=== PATIENT | female | born 1940 | race Caucasian/White ===

== ENCOUNTER → 2019-11-01 | Day surgery (SDC) | payer OTHER ==
[~2019-11-01] MED LIST: ELIQUIS5 MG PO; FOLIC ACID PO; FORTAMET500 MG PO; GRALISE600 MG PO; LOPRE; NORVASC5 MG PO; RECTICARE30 GM TOP; ULTRAM50 MG PO
== END | disposition home or self-care (01) ==
LOC: ADM 10-01 10:00 → CIR.AMB 10-06 10:00 → EDBD 10-06 10:00 → CIR.AMB 06:00
PROVIDERS: ATTEND Surgery
DX: K64.8 Other hemorrhoids (principal); K64.4 Residual hemorrhoidal skin tags